=== PATIENT | male | born 1950 ===

== ENCOUNTER 2023-05-06 08:42 | Day surgery (SDC) | payer OTHER ==
[~2023-05-06] VITALS: Ht 172.7 cm; Wt 56.5 kg
[~2023-05-06 08:42] MED LIST: BACPOLTO LEFTEYE
[2023-05-06] MEDS ORDERED: CLOBETASOL EMOL15 G1 (09:24)
[2023-05-06] MEDS ORDERED: Cymbalta20 MG (09:24)
[2023-05-06] MEDS ORDERED: Triamcinolone A15 GM (09:25)
[2023-05-06 12:20] VITALS: BP 118/77
== END 2023-05-06 12:08 | disposition home or self-care (01) ==
LOC: ORSCSDS 08:42
PROVIDERS: Internal Medicine Gastroenterology
PROC: 0DBN8ZX Excision of Sigmoid Colon, Via Natural or Artificial Opening Endoscopic, Diagnostic (ICD-10-PCS; principal; 2023-05-06 10:00)
PROC: 0DBL8ZX Excision of Transverse Colon, Via Natural or Artificial Opening Endoscopic, Diagnostic (ICD-10-PCS; principal; 2023-05-06 10:00)
PROC: 0DJ08ZZ Inspection of Upper Intestinal Tract, Via Natural or Artificial Opening Endoscopic (ICD-10-PCS; principal; 2023-05-06 10:00)
PROC: 0DBK8ZX Excision of Ascending Colon, Via Natural or Artificial Opening Endoscopic, Diagnostic (ICD-10-PCS; principal; 2023-05-06 10:00)
DX: R13.10 Dysphagia, unspecified (principal); Z86.010 Personal history of colon polyps; D12.5 Benign neoplasm of sigmoid colon; D12.2 Benign neoplasm of ascending colon; D12.3 Benign neoplasm of transverse colon; K64.4 Residual hemorrhoidal skin tags; Z85.46 Personal history of malignant neoplasm of prostate; F17.210 Nicotine dependence, cigarettes, uncomplicated; Z79.899 Other long term (current) drug therapy
CPT/HCPCS: 88305; J2704; J7120